=== PATIENT | female | born 1990 | race Two or more races ===

== ENCOUNTER 2023-08-04 15:00 | Emergency (ER) | payer OTHER ==
[~2023-08-04] VITALS: Ht 154.9 cm; Wt 111.4 kg
[2023-08-04 18:44] VITALS: BP 132/77; PULSE 84; RESP 18; TEMP 98.5; O2SAT 96
[2023-08-04] MEDS: KETOROLAC TROMETH 60MG/2ML VIAL IM ONE (19:03)
== END 2023-08-04 19:50 | disposition home or self-care (01) ==
LOC: ER 15:00
DX: S39.012A Strain of muscle, fascia and tendon of lower back, initial encounter (principal); X50.0XXA Overexertion from strenuous movement or load, initial encounter; Y93.89 Activity, other specified; Y92.89 Other specified places as the place of occurrence of the external cause; Y99.8 Other external cause status
CPT/HCPCS: 96372; 99283; J1885